=== PATIENT | male | born 1985 | race Hispanic/Latino ===

== ENCOUNTER 2018-05-24 11:23 | Emergency (ER) | payer SELFPAY ==
[~2018-05-24 11:23] MED LIST: FLEXERIL10 MG PO; NO MEDS; TORADOL OR
[2018-05-24] MEDS ORDERED: CEPHALEXIN500 M1 PO (15:37)
[2018-05-24 16:05] VITALS: BP 125/77
== END 2018-05-24 16:05 | disposition home or self-care (01) | DRG 605 ==
LOC: ED 11:23
PROC: 0HC5XZZ Extirpation of Matter from Chest Skin, External Approach (ICD-10-PCS; principal; 2018-05-24)
DX: S20.352A Superficial foreign body of left front wall of thorax, initial encounter (principal); X58.XXXA Exposure to other specified factors, initial encounter; Y93.89 Activity, other specified; Y92.61 Building [any] under construction as the place of occurrence of the external cause; Y99.0 Civilian activity done for income or pay